=== PATIENT | male | born 1965 | race African-American/Black ===

== ENCOUNTER 2017-03-16 22:03 | Observation (INO) | payer OTHER ==
[~2017-03-16] VITALS: Ht 190.5 cm; Wt 90.7 kg
--- NOTE | ~2017-03-16 | H ---
[facility] [place] [address] HISTORY AND PHYSICAL Name: BHARAT STEINBERG Room #: 306-P [facility] Dewayne#: [id number] Admission: 03/17/17 Attend Phys: Bobby Pineda DO Discharge: Date of : 65 Report #: [id number] THIS REPORT FOR: //name// CC: Bobby Pineda DATE OF SERVICE: 03/17/2017 DATE OF SERVICE: 03/17/2017 ATTENDING PHYSICIAN: Dr. Bobby Pineda. PRIMARY CARE PHYSICIAN: Dr. Hall. CHIEF COMPLAINT: Left-sided chest pain. HISTORY OF PRESENT ILLNESS: The patient is a 51-year-old -[place] male who has history of muscular dystrophy. He came into the ER complaining of left-sided chest pain. It just started this evening while he was watching TV. The pain radiated into his left arm and down to his left elbow. He does have some chronic pain related to his history of muscular dystrophy. He says that pain was normal, but this pain seemed different. He told his who was concerned and comes in to the ER. He denies any fall or injury. The pain is an aching pain, not worse by movement. He denies any history of coronary artery disease. 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 He did not know any further details of this. He follows with the corporate safety director at . He does take blood pressure medications and has diabetes and hyperlipidemia. Although he is not on any current meds for the hyperlipidemia because of the side affect. With his episode of chest pain tonight, he did not have any associated nausea, vomiting, diaphoresis. He is now resting comfortably. PAST MEDICAL HISTORY: Juvenile asthma, muscular dystrophy, diabetes, hypertension, hyperlipidemia, not on any current treatment. PAST SURGICAL HISTORY: Appendectomy, muscle biopsy. ALLERGIES: STATINS cause elevated liver enzymes. HOME MEDICATIONS: Aspirin 81 mg p.o. daily, ramipril 10 mg p.o. daily, metformin 1000 mg p.o. b.i.d., Januvia unknown dose daily, multivitamin 1 tab daily. SOCIAL HISTORY: The patient is a never smoker. He drinks alcohol very rarely. He lives at home with his and children. He does ambulate with a cane at [address] [address] HISTORY AND PHYSICAL Name: BHARAT STEINBERG Room #: 306-P ADM Jasper Dewayne#: [id number] Admission: 03/17/17 Attend Phys: Bobby Pineda DO Discharge: Date of : 65 Report #: [id number] home and when he goes out, he requires a scooter. FAMILY HISTORY: His mother has CHF and ____. His father from a motor vehicle accident. REVIEW OF SYSTEMS: Twelve point review of systems was reviewed with the patient, otherwise negative unless stated in the HPI. PHYSICAL EXAMINATION: GENERAL: The patient is an alert male in no acute distress. VITAL SIGNS: Temperature is 36.7, heart rate 98, respirations 16, blood pressure is 135/94, oxygen 99% on room air. HEENT: PERRLA. Sclerae is nonicteric. Oral mucosa is pink and moist. NECK: Supple, no JVD noted. CARDIOVASCULAR: Normal S1, S2. No murmurs, rubs or gallops. RESPIRATORY: Breath sounds are clear bilaterally. No wheezing or rhonchi. Breathing is nonlabored. ABDOMEN: Soft, nontender, nondistended with positive bowel sounds. VASCULAR: No edema noted. Pedal pulses are 2+. NEUROLOGIC: The patient is alert and oriented x 3. Speech is clear. He does have some limited strength and range of motion in bilateral upper extremities with normal range of motion in bilateral lower extremities. SKIN: Intact. No rashes or lesions. LABORATORY DATA AND DIAGNOSTICS: WBC of 6.8, hemoglobin 15.0, platelets 270. Sodium 139, potassium 4.4, BUN 13, creatinine 0.6, glucose 237, magnesium 1.7. LFTs are within normal limits. CK is 182. Troponins negative. BNP 9. INR 1.0. Chest x-ray showed no acute cardiopulmonary process. ASSESSMENT AND PLAN: 1. Chest pain. This is fairly reproducible, likely musculoskeletal. We will check serial cardiac enzymes. If his next enzyme is elevated, we will consult Cardiology for any further testing. We will also check a D-dimer and if this is elevated, check CT angio of the chest. We will hold off on a stress test at this time until his next troponin is back. We will also add muscle relaxant. 2. Diabetes. Blood sugar is slightly elevated, continue home medications and add sliding scale insulin and Accu-Chek. 3. Hypertension. Blood pressure is stable. Continue with ramipril. 4. Mild rhabdomyolysis. His CK is elevated, probable due to muscular dystrophy. 5. Hypomagnesemia. This will be replaced. Follow labs. 6. Deep venous thrombosis prophylaxis. Place SCDs. [facility] [address] [place] [address] HISTORY AND PHYSICAL Name: BHARAT STEINBERG Room #: 306-P [facility] Jasper Buchanan#: [id number] Admission: 03/17/17 Attend Phys: Bobby Pineda DO Discharge: Date of : 65 Report #: [id number] We will continue to follow the patient closely throughout the hospitalization and make changes based on clinical status. <ELECTRONICALLY SIGNED> By: VILMA Dunn 03/18/17 0743 0734 9 VILMA Dunn /evangelina
--- NOTE | ~2017-03-16 | 2DMMODE ---
[facility] [address] [address] [place] [address] 2 D/M-MODE ECHOCARDIOGRAM Name: STEINBERGBHARATJESSICA FULTON Room #: 306-P [facility] IN M.R.#: [id number] Admission: 03/17/17 Attend Phys: Bobby Pineda, Discharge: Date of : 65 Date of Service: 03/17/17 1503 Report #: [id number] THIS REPORT FOR: //name// APPROVED REPORT Study performed: 03/17/2017 13:34:36 EXAM: Comprehensive 2D, Doppler, and color-flow Echocardiogram Patient Location: Echo lab Room #: 306 Status: routine BSA: 2.19 BP: 137/92 mmHg Other Information Study Quality: Good Indications Chest Pain Hypertension/HDD 2D Dimensions RVDd: 36.49 mm LVEF(%): 64.06 (>50%) IVSd: 10.01 (7-11mm) LVOT Diam: 23.34 (18-24mm) LVDd: 50.44 mm PWd: 10.18 (7-11mm) Ascending Ao: 35.39 (22-36mm) LVDs: 32.76 (25-40mm) Aortic Root: 33.11 mm IVC: 2.10 mm Tamez's LVEF: 64.06 % Volumes Left Atrial Volume (Systole) Single Plane 4CH: 39.79 mL Single Plane 2CH: 73.71 mL LA ESV Index: 29.00 mL/m2 Aortic Valve AoV Peak Chema.: 1.27 m/s AO Peak Gr.: 7.30 mmHg LVOT Max P.37 mmHg LVOT Max V: 1.05 m/s HUI Vmax: 3.51 cm2 Mitral Valve E/A Ratio: 1.7 MV Decel. Time: 259.81 ms [facility] [place] [address] 2 D/M-MODE ECHOCARDIOGRAM Name: BHARAT STEINBERG Room #: 306-P [facility] IN M.R.#: [id number] Admission: 03/17/17 Attend Phys: Bobby Pineda, Discharge: Date of : 65 Date of Service: 03/17/17 1503 Report #: [id number] E Max Chema.: 0.93 m/s MV A Chema.: 0.54 m/s MV PHT: 75.34 ms IVRT: 87.66 ms Pulmonary Valve PV Peak Chema.: 1.00 m/s PV Peak Gr.: 4.05 mmHg Pulmonary Vein P Vein S: 0.42 m/s P Vein A: 0.38 m/s P Vein D: 0.51 m/s P Vein A Dur.: 110.7 msec P Vein S/D Ratio: 0.82 Tricuspid Valve TR Peak Chema.: 2.14 m/s RAP Estimate: 5.00 mmHg TR Peak Gr.: 18.29 mmHg PA Pressure: 23.00 mmHg Left Ventricle The left ventricle is normal size. There is normal LV segmental wall motion. There is normal left ventricular wall thickness. The left ventricular systolic function is normal. The left ventricular ejection fraction is within the normal range. LVEF is 60-65%. The left ventricular diastolic function is normal. Right Ventricle The right ventricle is normal size. The right ventricular systolic function is normal. Atria The left atrium size is normal. Right atrium is at the upper limits of normal. Aortic Valve The aortic valve is normal in structure. No aortic regurgitation is present. There is no aortic valvular stenosis. Mitral Valve The mitral valve is normal in structure. Trace mitral regurgitation. No evidence of mitral valve stenosis. Tricuspid Valve The tricuspid valve is normal in structure. There is trace tricuspid regurgitation. The right atrial pressure is estimated at 5 mmHg. There is no pulmonary hypertension with an estimated PAP [place] [address] [place] [address] 2 D/M-MODE ECHOCARDIOGRAM Name: BHARAT STEINBERGWAYNE Room #: 306-P [facility] IN .R.#: [id number] Admission: 03/17/17 Attend Phys: Bobby Pineda, Discharge: Date of : 65 Date of Service: 03/17/17 1503 Report #: [id number] Pulmonic Valve The pulmonary valve is normal in structure. There is no pulmonic valvular regurgitation. Great Vessels The aortic root is normal in size. The ascending aorta is normal in size. IVC is normal in size and collapses >50% with inspiration. Pericardium There is no pericardial effusion. <Conclusion> The left ventricle is normal size. LVEF is 60-65%. The aortic valve is normal in structure. The mitral valve is normal in structure. Trace mitral regurgitation. The tricuspid valve is normal in structure. There is trace tricuspid regurgitation. The right atrial pressure is estimated at 5 mmHg. There is no pulmonary hypertension with an estimated PAP of 23 mmHg. The pulmonary valve is normal in structure. <ELECTRONICALLY SIGNED> By: John Faith MD 03/17/17 1503 1503 1503 John Faith MD /INF
--- NOTE | ~2017-03-16 | D ---
[facility] [place] [address] DISCHARGE SUMMARY Name: BHARAT STEINBERG Room #: 306-P NICHOL Buchanan#: [id number] Admission: 03/17/17 Attend Phys: Bobby Pineda DO Discharge: 03/18/17 Date of : 65 Report #: [id number] THIS REPORT FOR: //name// CC: Bobby Pineda DATE OF SERVICE: 03/18/2017 HISTORY OF PRESENT ILLNESS: The patient is a 51-year-old man with history of muscular dystrophy who came to the hospital with a left-sided chest pain. The patient was hospitalized at [facility]. Cardiac enzymes were negative, all 3 sets. EKG was unremarkable. Skein Winding Operator was consulted. The patient had cardiac echo, that was normal. It showed normal ejection fraction, and no valvular abnormality. Pulmonary artery pressure was also normal. The patient's chest pain resolved overnight. This morning, the patient had myocardial stress test, result of which is pending. The patient has been hemodynamically stable. The patient will be discharged home later today if myocardial stress test is unremarkable, and if Cardiology recommends sending the patient home. DISCHARGE DIAGNOSES: 1. Chest pain, atypical, negative evaluation for acute coronary syndrome based on cardiac enzymes, EKG, and cardiac echo. Myocardial stress test result is pending at the time of this dictation. 2. Diabetes mellitus type 2, controlled, hemoglobin A1c 6.8%. 3. Hypertension. 4. Muscular dystrophy. 5. Dyslipidemia, elevated cholesterol, LDL at 193, and hyperglyceridemia. The patient is advised to discuss with the primary care physician treatment options. DISCHARGE MEDICATIONS: Please refer to the medication reconciliation list. FOLLOWUP PLAN: Follow up with the primary care physician in 1-2 weeks. <ELECTRONICALLY SIGNED> By: Sushma Prado MD 03/19/17 1534 1238 1331 Sushma Prado MD /nt
--- NOTE | ~2017-03-16 | EKG ---
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
--- NOTE | ~2017-03-16 | EKG ---
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
[2017-03-16 22:24] VITALS: BP 135/94
[2017-03-16 22:44] LABS: ABSOLUTE NEUTROPHILS 4.9 thou/uL (1.4-8.2); BASOPHILS 0.8 % (0.0-2.0); LYMPHOCYTES 18.1 % (24.0-44.0); MCH 30.1 pg (26.0-34.0); MCHC 34.8 g/dL (28.0-37.0); MCV 86.6 fL (80.0-100.0); MONOCYTES 5.2 % (1.0-8.0); PLATELET COUNT 270 thou/uL (150-400); POLYS 72.9 % (36.0-66.0); RBC 4.97 mil/uL (4.50-6.00); RDW 13.2 % (10.5-14.5); WBC 6.8 thou/uL (4.0-11.0)
[2017-03-16 22:45] LABS: MANUAL DIFF NO
[2017-03-16 22:54] LABS: ANION GAP 10 mmol/L (7-16); BUN 13 mg/dL (7-18); CALCIUM 10.3 mg/dL (8.5-10.1); CHLORIDE 103 mmol/L (98-107); CO2 26 mmol/L (21-32); CREATININE 0.6 mg/dL (0.7-1.3); GLUCOSE 237 mg/dL (74-106); POTASSIUM 4.4 mmol/L (3.5-5.1); SODIUM 139 mmol/L (136-145)
[2017-03-16 22:59] LABS: APTT 27.3 Seconds (24.5-32.8); PROTIME 9.8 Seconds (9.3-11.4)
[2017-03-16 23:11] LABS: ALBUMIN 4.9 g/dL (3.4-5.0); ALKALINE PHOSPHATASE 100 U/L (46-116); CK-MB MASS 12.1 ng/mL (<0.5-3.6); MAGNESIUM 1.7 mg/dL (1.8-2.4); NT-PRO BRAIN NAT PEPTIDE 9 pg/mL (<300); SGOT 42 U/L (15-37); SGPT 58 U/L (30-65); TOTAL BILIRUBIN 0.5 mg/dL (<0.1-1.0); TOTAL PROTEIN 8.2 g/dL (6.4-8.2); TROPONIN-I < 0.04 ng/mL (<0.04-0.07)
[2017-03-16 23:17] LABS: LARGE PLATELETS OCCASIONAL
[2017-03-16] MEDS ORDERED: ASPIR 8181 MG PO (23:30)
[2017-03-16] MEDS ORDERED: RAMIPRIL10 MG PO (23:31)
[2017-03-16] MEDS ORDERED: METFORMIN HCL500 MG PO (23:31)
[2017-03-16] MEDS ORDERED: JANUVIA25 MG PO (23:33)
[2017-03-16] MEDS ORDERED: CENTRUM SILVER1 EAC2 PO (23:39)
[2017-03-17 00:51] VITALS: BP 116/57
[2017-03-17 03:01] LABS: CHOLESTEROL 298 mg/dL (<200); HDL CHOLESTEROL 36 mg/dL (>40); LDL CHOLESTEROL 193 mg/dL (<100); TC:HDL 8.3 Ratio (Not establshd); TRIGLYCERIDE 347 mg/dL (<150); VLDL 69 mg/dL (<40)
[2017-03-17 03:07] LABS: SERUM ASSESSMENT Slight Lipemia
[2017-03-17 04:22] VITALS: BP 105/76
[2017-03-17 08:40] VITALS: BP 137/92
[2017-03-17 16:30] VITALS: BP 111/64
[2017-03-17 19:17] VITALS: BP 100/70
[2017-03-18 03:11] LABS: GLYCOHEMOGLOBIN (HGB A1C) 6.8 % (4.8-5.6)
[2017-03-18 03:50] VITALS: BP 124/77
[2017-03-18 08:00] VITALS: BP 124/77
[2017-03-18 13:00] VITALS: BP 124/77
== END 2017-03-18 14:07 | disposition home or self-care (01) ==
LOC: ER 22:03 → 3N 03-17 00:16 → EROBS 03-17 00:16 → 3N 03-17 00:51
PROVIDERS: Emergency Medicine; Nurse Practitioner Acute Care
DX: R07.89 Other chest pain (principal); I10 Essential (primary) hypertension; E78.5 Hyperlipidemia, unspecified; E11.65 Type 2 diabetes mellitus with hyperglycemia; E78.6 Lipoprotein deficiency; G71.0 Muscular dystrophy; E83.42 Hypomagnesemia; M62.82 Rhabdomyolysis; J45.909 Unspecified asthma, uncomplicated; Z72.89 Other problems related to lifestyle
CPT/HCPCS: 23019; 23023; 23024

== ENCOUNTER 2019-08-19 22:38 | Emergency (ER) | payer OTHER ==
[~2019-08-19] VITALS: Ht 190.5 cm; Wt 86.2 kg
[~2019-08-19 22:38] MED LIST: ASPIR 8181 MG PO; CENTRUM SILVER1 EAC2 PO; JANUVIA25 MG PO; METFORMIN HCL500 MG PO; RAMIPRIL10 MG PO
[2019-08-19] MEDS ORDERED: ROSUVASTATIN CA20 MG PO (22:44)
[2019-08-19] MEDS ORDERED: GLIMEPIRIDE4 MG PO (22:45)
[2019-08-20] MEDS ORDERED: MOBIC15 MG PO (00:56)
[2019-08-20 01:15] VITALS: BP 125/78
== END 2019-08-20 01:15 | disposition home or self-care (01) ==
LOC: ER 22:38
DX: S00.03XA Contusion of scalp, initial encounter (principal); S70.02XA Contusion of left hip, initial encounter; E11.9 Type 2 diabetes mellitus without complications; W18.39XA Other fall on same level, initial encounter; Y93.89 Activity, other specified; Y92.098 Other place in other non-institutional residence as the place of occurrence of the external cause; Y99.8 Other external cause status